=== PATIENT | female | born 1965 | race Caucasian/White ===

== ENCOUNTER 2016-08-26 08:36 | Emergency (ER) | payer MEDICARE, MEDICAID ==
--- NOTE | 2016-08-26 09:05 | UC ---
Throat Pain/Nasal Esequiel HPI - HPI Summary HPI Summary: sinus congestion for a month. PRogressively worse for past week with facial pressure and pain, green drainage, headaches, malaise, pain in gums and right ear. Can't wear dentures due to pain, can't sleep. No fever. No vomiting, but poor appetite. Smokes - History of Current Complaint Chief Complaint: UCGeneralIllness Stated Complaint: SINUS COMPLAINT Time Seen by Provider: 08/26/16 08:51 Hx Obtained From: Patient Onset/Duration: Gradual Onset, Lasting Weeks - 4 Severity: Severe Cough: Nonproductive Associated Signs & Symptoms: Positive: Dysphagia, Hoarseness, Sinus Discomfort, Nasal Discharge. 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 knee surgery L knee. C section x 2 - Family History Known Family History: Positive: Cardiac Disease, Hypertension - Social History Occupation: Unemployed Lives: With Family Alcohol Use: Rare Substance Use Type: None Smoking Status (MU): Light Every Day Tobacco Smoker Type: Cigarettes Amount Used/How Often: 1/2 Length of Time of Smoking/Using Tobacco: 35 Years Have You Smoked in the Last Year: Yes Household Exposure Type: Cigarettes Review of Systems Constitutional: Fatigue Skin: Negative Eyes: Negative ENT: Dental Pain, Sore Throat, Ear Ache, Nasal Discharge Respiratory: Cough Cardiovascular: Negative Gastrointestinal: Negative Genitourinary: Negative Motor: Negative Neurovascular: Negative Musculoskeletal: Negative Neurological: Headache Psychological: Negative All Other Systems Reviewed And Are Negative: Yes Physical Exam Triage Information Reviewed: Yes Appearance: Well-Appearing, No Pain Distress, Well-Nourished Vital Signs: Initial Vital Signs Temp 97.0 F 08/26/16 08:40 Pulse 89 08/26/16 08:40 Resp 16 08/26/16 08:40 BP 169/82 08/26/16 08:40 Pulse Ox 99 08/26/16 08:40 Vital Signs Reviewed: Yes Eye Exam: Normal ENT: Positive: Hearing grossly normal, Pharynx normal, Nasal congestion, Nasal drainage, TMs normal. Negative: TM bulging, TM dull, TM red, Tonsillar swelling , Tonsillar exudate, Trismus, Muffled/hoarse voice Neck exam: Normal Respiratory Exam: Normal Cardiovascular Exam: Normal Musculoskeletal Exam: Normal Neurological Exam: Normal Neurological: Positive: Alert, Muscle Tone Normal Psychological Exam: Normal Skin Exam: Normal Throat Pain/Nasal Course/Dx - Differential Dx/Diagnosis Differential Diagnosis/HQI/PQRI: Pharyngitis, Sinusitis, URI Provider Diagnoses: sinusitis Discharge - Discharge Plan Condition: Stable Disposition: HOME Prescriptions: DOXYcycline CAP(*) [DOXYcycline 100MG CAP(*)] 100 mg PO BID #20 cap Hydrocodone-Acetaminophen [Hydrocodone/Acetaminophen 5-325 mg] 1 - 2 tab PO Q6HR PRN #14 tab MDD 6 tab PRN Reason: Pain Patient Education Materials: Sinusitis (ED) Referrals: Jeremy Oseguera DO [Primary Care Provider] -
[2016-08-26 09:06] VITALS: BP 169/82
== END 2016-08-26 09:09 | disposition home or self-care (01) ==
LOC: UCCORT 08:36
DX: J32.9 Chronic sinusitis, unspecified (principal); Z88.4 Allergy status to anesthetic agent; Z88.0 Allergy status to penicillin; F17.210 Nicotine dependence, cigarettes, uncomplicated
CPT/HCPCS: 99212; G0463

== ENCOUNTER 2017-03-30 19:28 | Emergency (ER) | payer MEDICARE, MEDICAID ==
[2017-03-30 19:36] VITALS: BP 149/69
--- NOTE | 2017-03-30 20:02 | UC ---
Throat Pain/Nasal Esequiel HPI - HPI Summary HPI Summary: 51 yo female with severe sore throat which started this AM can swallow liquids unable to swallow solids no f/c some URI symtpoms neck feels swollen 100 lb wt loss past yr hx DM Hx CAD - History of Current Complaint Chief Complaint: UCGeneralIllness Stated Complaint: SORE THROAT Time Seen by Provider: 03/30/17 19:32 Hx Obtained From: Patient Onset/Duration: Gradual Onset, Lasting Hours Severity: Severe Pain Intensity: 10 Pain Scale Used: 0-10 Numeric Cough: Nonproductive Associated Signs & Symptoms: Positive: Dysphagia, Sinus Discomfort - Epiglottits Risk Factors Epiglottis Risk Factors: Negative - Allergies/Home Medications Allergies/Adverse Reactions: Allergies Allergy/AdvReac Type Severity Reaction Status Date / Time Penicillins Allergy Severe Anaphylatic Verified 03/30/17 19:36 Shock Procaine [From Novocain] Allergy Severe Anaphylatic Verified 03/30/17 19:36 Shock PMH/Surg Hx/FS Hx/Imm Hx Previously Healthy: Yes Endocrine History: Diabetes Cardiovascular History: Cardiac Disease - Surgical History Surgical History: Yes Surgery Procedure, Year, and Place: Abdominal Vessel Repair, Apr 2015, [facility]; 2007- bipass,. knee surgery L knee. C section x 2 - Family History Known Family History: Positive: Cardiac Disease, Hypertension, Other - Ca - Social History Alcohol Use: None Substance Use Type: None Smoking Status (MU): Light Every Day Tobacco Smoker Type: Cigarettes Amount Used/How Often: < 1/2 ppd Length of Time of Smoking/Using Tobacco: 35 Years Have You Smoked in the Last Year: Yes Household Exposure Type: Cigarettes Review of Systems Constitutional: Negative Skin: Negative Eyes: Negative ENT: Sinus Pain/Tenderness Respiratory: Cough Cardiovascular: Negative Gastrointestinal: Negative Genitourinary: Negative Motor: Negative Neurovascular: Negative Musculoskeletal: Negative Neurological: Negative Psychological: Negative All Other Systems Reviewed And Are Negative: Yes Physical Exam Triage Information Reviewed: Yes Appearance: Well-Appearing, No Pain Distress, Well-Nourished Vital Signs: Initial Vital Signs Temp 96.1 F 03/30/17 19:32 Pulse 89 03/30/17 19:32 Resp 17 03/30/17 19:32 BP 149/69 03/30/17 19:32 Pulse Ox 98 03/30/17 19:32 Eyes: Positive: Conjunctiva Clear ENT: Positive: Hearing grossly normal, Pharynx normal, TMs normal. Negative: Nasal congestion, Nasal drainage, Tonsillar exudate, Trismus, Muffled/hoarse voice Dental: Positive: Other: - upper plate Neck: Positive: Supple, Other: - Markedly tender left lower neck/ supraclavicular region ??adenopathy Respiratory: Positive: Lungs clear, Normal breath sounds, No respiratory distress, No accessory muscle use Cardiovascular: Positive: RRR, No Murmur Neurological: Positive: Alert Psychological Exam: Normal Skin Exam: Normal Throat Pain/Nasal Course/Dx - Course Course Of Treatment: d/w [facility]. Kilpatrick [facility]. accepts pt. she declines EMS transfer and signed AMA for that - Differential Dx/Diagnosis Provider Diagnoses: severe throat pain. solid food dysphagia. extreme wt loss Discharge - Discharge Plan Condition: Stable Disposition: TRANS HIGHER LVL OF CARE FAC
== END 2017-03-30 20:00 | disposition short-term general hospital (02) ==
LOC: UCCORT 19:28
DX: R07.0 Pain in throat (principal); R13.10 Dysphagia, unspecified; R63.4 Abnormal weight loss; E11.9 Type 2 diabetes mellitus without complications; I25.10 Atherosclerotic heart disease of native coronary artery without angina pectoris; Z95.1 Presence of aortocoronary bypass graft; F17.210 Nicotine dependence, cigarettes, uncomplicated
CPT/HCPCS: 99212; G0463